=== PATIENT | male | born 1955 | race Two or more races ===

== ENCOUNTER → 2020-12-19 | Outpatient (CLI) | payer MEDICAID | END | disposition home or self-care (01) | LOC: XY 09:54 | PROVIDERS: ATTEND Family Medicine | DX: I70.203 Unspecified atherosclerosis of native arteries of extremities, bilateral legs (principal) | CPT/HCPCS: 93925 ==

== ENCOUNTER → 2024-05-06 | Outpatient (CLI) | payer OTHER ==
[2024-05-06 10:47] LABS: Urine Bacteria None Seen /hpf (None Seen)
[2024-05-06 10:54] LABS: Basophils # (auto) 0.1 10 ^3/uL (0-0.2); Basophils % (auto) 0.9 % (0.0-2.0); Eosinophils # (auto) 0.5 10 ^3/uL (0-0.8); Hematocrit 51.2 % (41.0-53.0); Hemoglobin 17.3 g/dL (13.5-17.5); Lymphocytes # (auto) 3.5 10 ^3/uL (0.4-5.4); Lymphocytes % (auto) 36.6 % (10.0-50.0); Mean Corpuscular Hemoglobin 29.9 pg (28.0-32.0); Mean Corpuscular Hgb Conc. 33.8 g/dL (32.0-36.0); Mean Corpuscular Volume 88.3 fL (80.0-100.0); Monocytes # (auto) 0.8 10 ^3/uL (0-1.3); Monocytes % (auto) 8.7 % (0.0-12.0); Neutrophils # (auto) 4.7 10 ^3/uL (1.6-8.6); Neutrophils % (auto) 48.8 % (37.0-80.0); Nucleated Red Blood Cells % 0.1 %; Platelet Count (auto) 209 10^3/uL (140-450); Red Cell Distribution Width 14.9 % (11.8-14.3); White Blood Cell 9.5 10^3/uL (4.4-10.8)
[2024-05-06 10:56] LABS: Urine Blood Negative /uL (Negative); Urine Clarity Clear (Clear); Urine Color Yellow (Yellow); Urine Protein, UAD Negative (Negative); Urine Specific Gravity 1.022 (1.001-1.035); Urine Urobilinogen Normal (Negative); Urine WBC 3 /hpf (0 - 3); Urine pH 5.5 (5.0-9.0)
[2024-05-06 11:36] LABS: Alanine Aminotransferase 17 U/L (7-40); Alkaline Phosphatase 110 U/L (46-116); Anion Gap 5 (5-15); BUN/Creatinine Ratio 14.7 (10.0-20.0); Blood Urea Nitrogen 14 mg/dL (9-23); Calcium 10.1 mg/dL (8.7-10.4); Carbon Dioxide 30 mmol/L (20-31); Potassium 4.9 mmol/L (3.5-5.1); Sodium 142 mmol/L (136-145); Triglycerides 119 mg/dL (< 150)
[2024-05-06 11:37] LABS: Albumin 4.4 g/dL (3.2-4.8); Aspartate Aminotransferase 22 U/L (13-40); Bilirubin, Total 0.6 mg/dL (0.2-1.0); Cholesterol 154 mg/dL (< 200); Total Protein 7.6 g/dL (5.7-8.2)
[2024-05-06 11:42] LABS: Chloride 107 mmol/L (98-107); Glucose 66 mg/dL (74-106); HDL Cholesterol 35 mg/dL (40-59); LDL Cholesterol 105 mg/dL (< 100)
[2024-05-06 18:28] LABS: Creatinine, Urine 141.68 mg/dL (30.0-125.0)
== END | disposition home or self-care (01) ==
LOC: LAB 10:20
PROVIDERS: ATTEND Internal Medicine
DX: R73.09 Other abnormal glucose (principal); R94.6 Abnormal results of thyroid function studies; E55.9 Vitamin D deficiency, unspecified; R68.89 Other general symptoms and signs; D51.9 Vitamin B12 deficiency anemia, unspecified; E61.2 Magnesium deficiency; R82.90 Unspecified abnormal findings in urine; R79.89 Other specified abnormal findings of blood chemistry
CPT/HCPCS: 36415; 80053; 80061; 81001; 82043; 82306; 82570; 82746; 84443; 85025; 87086

== ENCOUNTER → 2024-06-15 | Outpatient (CLI) | payer OTHER | END | disposition home or self-care (01) | LOC: LAB 09:33 | DX: M25.2 Flail joint (principal) | CPT/HCPCS: 36415; 84550 ==

== ENCOUNTER → 2024-08-09 | Outpatient (CLI) | payer OTHER ==
[2024-08-09 13:05] LABS: Creatinine, Urine 138.39 mg/dL (30.0-125.0)
== END | disposition home or self-care (01) ==
LOC: LAB 11:30
PROVIDERS: ATTEND Internal Medicine
DX: E11.9 Type 2 diabetes mellitus without complications (principal)
CPT/HCPCS: 36415; 82043; 82570

== ENCOUNTER → 2024-08-25 | Outpatient (CLI) | payer OTHER ==
[2024-08-25 09:46] LABS: Urine Bacteria None Seen /hpf (None Seen)
[2024-08-25 09:55] LABS: Basophils # (auto) 0.1 10 ^3/uL (0-0.2); Basophils % (auto) 0.7 % (0.0-2.0); Eosinophils # (auto) 0.4 10 ^3/uL (0-0.8); Eosinophils % (auto) 4.6 % (0.0-7.0); Hematocrit 48.7 % (41.0-53.0); Hemoglobin 16.1 g/dL (13.5-17.5); Lymphocytes # (auto) 2.9 10 ^3/uL (0.4-5.4); Lymphocytes % (auto) 36.2 % (10.0-50.0); Mean Corpuscular Hemoglobin 29.6 pg (28.0-32.0); Mean Corpuscular Hgb Conc. 33.1 g/dL (32.0-36.0); Mean Corpuscular Volume 89.3 fL (80.0-100.0); Monocytes # (auto) 0.7 10 ^3/uL (0-1.3); Monocytes % (auto) 8.2 % (0.0-12.0); Neutrophils # (auto) 4.1 10 ^3/uL (1.6-8.6); Neutrophils % (auto) 50.3 % (37.0-80.0); Nucleated Red Blood Cells % 0.2 %; Platelet Count (auto) 194 10^3/uL (140-450); Red Blood Cells 5.46 10^6/uL (4.5-5.90); White Blood Cell 8.1 10^3/uL (4.4-10.8)
[2024-08-25 09:59] LABS: Urine Blood Negative /uL (Negative); Urine Clarity Clear (Clear); Urine Color Light-Yellow (Yellow); Urine Protein, UAD Negative (Negative); Urine Specific Gravity 1.015 (1.001-1.035); Urine Squamous Epithelial Cell None Seen /hpf (<5); Urine Urobilinogen Normal (Negative); Urine WBC 4 /HPF (0-3); Urine pH 6.5 (5.0-9.0)
[2024-08-25 10:10] LABS: Alanine Aminotransferase 20 U/L (7-40); Albumin 4.3 g/dL (3.2-4.8); Alkaline Phosphatase 101 U/L (46-116); Anion Gap 4 (5-15); Aspartate Aminotransferase 16 U/L (13-40); BUN/Creatinine Ratio 21.2 (10.0-20.0); Bilirubin, Total 0.6 mg/dL (0.2-1.0); Blood Urea Nitrogen 18 mg/dL (9-23); Calcium 9.7 mg/dL (8.7-10.4); Glucose 79 mg/dL (74-106); Potassium 4.5 mmol/L (3.5-5.1); Sodium 142 mmol/L (136-145); Total Protein 7.4 g/dL (5.7-8.2); Uric Acid 6.4 mg/dL (3.7-9.2)
[2024-08-25 10:16] LABS: Folate (Folic Acid) 10.54 ng/mL (>5.38)
[2024-08-25 10:42] LABS: Carbon Dioxide 31 mmol/L (20-31); Chloride 107 mmol/L (98-107); Prostate Specific Antigen 8.47 ng/mL (0.0-4.0)
[2024-08-26 08:07] LABS: PSA Free 1.82 ng/mL; Prostate Specific Antigen 9.2 ng/mL (0.0-4.0)
[2024-08-26 16:53] LABS: Triglycerides 147 mg/dL (< 150)
[2024-08-26 16:54] LABS: Cholesterol 161 mg/dL (< 200)
[2024-08-26 17:04] LABS: HDL Cholesterol 33 mg/dL (40-59); LDL Cholesterol 117 mg/dL (< 100)
== END | disposition home or self-care (01) ==
LOC: LAB 09:26
PROVIDERS: ATTEND Internal Medicine
DX: E55.9 Vitamin D deficiency, unspecified (principal); E61.2 Magnesium deficiency; R94.6 Abnormal results of thyroid function studies; E79.0 Hyperuricemia without signs of inflammatory arthritis and tophaceous disease; R82.79 Other abnormal findings on microbiological examination of urine; D51.9 Vitamin B12 deficiency anemia, unspecified; R68.89 Other general symptoms and signs; I10 Essential (primary) hypertension; E11.9 Type 2 diabetes mellitus without complications; E03.9 Hypothyroidism, unspecified; D64.9 Anemia, unspecified; E78.5 Hyperlipidemia, unspecified
CPT/HCPCS: 36415; 80053; 80061; 81001; 82306; 82607; 82746; 83036; 84153; 84154; 84443; 84550; 85025; 86708; 87086

== ENCOUNTER 2024-11-02 14:20 | Outpatient (CLI) | payer OTHER | END 2024-11-02 17:00 | disposition home or self-care (01) | LOC: LAB 14:20 | PROVIDERS: ATTEND Internal Medicine | DX: Z12.11 Encounter for screening for malignant neoplasm of colon (principal) | CPT/HCPCS: 82270 ==

== ENCOUNTER 2024-12-13 12:15 | Outpatient (CLI) | payer OTHER ==
[2024-12-13 12:52] LABS: Hematocrit 51.5 % (41.0-53.0); Hemoglobin 17.4 g/dL (13.5-17.5); Mean Corpuscular Hemoglobin 29.6 pg (28.0-32.0); Mean Corpuscular Volume 87.9 fL (80.0-100.0); Nucleated Red Blood Cells % 0.1 %
[2024-12-13 13:09] LABS: Urine Amorphous Crystal FEW /hpf (None Seen); Urine Budding Yeast OCCASIONAL /hpf (None Seen); Urine Protein, UAD Negative (Negative)
[2024-12-13 13:28] LABS: Alanine Aminotransferase 22 U/L (7-40); Albumin 4.6 g/dL (3.2-4.8); Alkaline Phosphatase 99 U/L (46-116); Anion Gap 7 (5-15); BUN/Creatinine Ratio 18.9 (10.0-20.0); Bilirubin, Direct 0.2 mg/dL (<0.3); Blood Urea Nitrogen 18 mg/dL (9-23); Chloride 106 mmol/L (98-107); Cholesterol 152 mg/dL (< 200); Potassium 4.4 mmol/L (3.5-5.1); Sodium 144 mmol/L (136-145); Total Protein 7.4 g/dL (5.7-8.2)
[2024-12-13 13:29] LABS: Bilirubin, Total 0.7 mg/dL (0.2-1.0); Calcium 10.5 mg/dL (8.7-10.4); Carbon Dioxide 31 mmol/L (20-31); Glucose 74 mg/dL (74-106); HDL Cholesterol 32 mg/dL (40-59); Triglycerides 157 mg/dL (< 150)
[2024-12-13 14:01] LABS: Uric Acid 5.7 mg/dL (3.7-9.2)
== END 2024-12-13 17:00 | disposition home or self-care (01) ==
LOC: LAB 12:15
PROVIDERS: ATTEND Internal Medicine
DX: I11.0 Hypertensive heart disease with heart failure (principal); I50.9 Heart failure, unspecified; E11.9 Type 2 diabetes mellitus without complications; E78.5 Hyperlipidemia, unspecified; E03.9 Hypothyroidism, unspecified; D64.9 Anemia, unspecified; E61.2 Magnesium deficiency; E79.0 Hyperuricemia without signs of inflammatory arthritis and tophaceous disease; E55.9 Vitamin D deficiency, unspecified; D51.9 Vitamin B12 deficiency anemia, unspecified; R68.89 Other general symptoms and signs; R94.6 Abnormal results of thyroid function studies; R82.998 Other abnormal findings in urine; R82.79 Other abnormal findings on microbiological examination of urine
CPT/HCPCS: 36415; 80053; 80061; 81001; 82248; 82306; 82607; 82746; 83036; 84443; 84550; 85025; 87086; 87088; 87186

== ENCOUNTER 2025-03-21 07:46 | Outpatient (CLI) | payer OTHER ==
[2025-03-21 09:06] LABS: Hematocrit 47.4 % (41.0-53.0); Hemoglobin 16.0 g/dL (13.5-17.5); Mean Corpuscular Hemoglobin 29.8 pg (28.0-32.0); Mean Corpuscular Volume 88.1 fL (80.0-100.0); Nucleated Red Blood Cells % 0.1 %
[2025-03-21 09:10] LABS: Urine Protein, UAD Negative (Negative)
[2025-03-21 09:23] LABS: Alanine Aminotransferase 18 U/L (7-40); Albumin 4.3 g/dL (3.2-4.8); Alkaline Phosphatase 101 U/L (46-116); Anion Gap 7 (5-15); BUN/Creatinine Ratio 17.0 (10.0-20.0); Blood Urea Nitrogen 16 mg/dL (9-23); Calcium 9.5 mg/dL (8.7-10.4); Potassium 4.3 mmol/L (3.5-5.1); Total Protein 7.6 g/dL (5.7-8.2); Triglycerides 148 mg/dL (< 150)
[2025-03-21 09:24] LABS: Bilirubin, Total 0.5 mg/dL (0.2-1.0); Cholesterol 140 mg/dL (< 200)
[2025-03-21 09:27] LABS: Carbon Dioxide 32 mmol/L (20-31); Chloride 108 mmol/L (98-107); Glucose 72 mg/dL (74-106); HDL Cholesterol 30 mg/dL (40-59); Sodium 147 mmol/L (136-145)
[2025-03-21 11:41] LABS: Uric Acid 6.4 mg/dL (3.7-9.2)
[2025-03-21 13:36] LABS: Prostate Specific Antigen 8.06 ng/mL (0.0-4.0)
[2025-03-22 06:07] LABS: Prostate Specific Antigen 8.5 ng/mL (0.0-4.0)
== END 2025-03-21 17:00 | disposition home or self-care (01) ==
LOC: LAB 07:46
PROVIDERS: ATTEND Internal Medicine
DX: E11.51 Type 2 diabetes mellitus with diabetic peripheral angiopathy without gangrene (principal); I50.9 Heart failure, unspecified; E78.5 Hyperlipidemia, unspecified; E56.9 Vitamin deficiency, unspecified
CPT/HCPCS: 36415; 80053; 80061; 81003; 82306; 82607; 83036; 84153; 84154; 84443; 84550; 85025; 87086